=== PATIENT | male | born 1980 | race Caucasian/White ===

== ENCOUNTER 2017-05-15 15:16 | Inpatient (IN) | payer BC, OTHER ==
[~2017-05-15] VITALS: Ht 175.3 cm; Wt 64.9 kg
[2017-05-16 01:45] VITALS: BP 123/76
--- NOTE | 2017-05-16 01:45 | NUR ---
Pre-Assessment Note: Pt seen at [facility] intake office. Pt is 36 year old male, AOx4 without s/s of acute distress noted. BP: 123/76, HR: 88, T: 96.8. RR: 18, SpO2 96%, Pain 0/10. Pt stated he came from [place], [place]. Pt reported that he presented to [facility] to detox from alcohol dependence. Explained rules and regulations of the unit. Full assessment to be done when pt arrives upstairs.
--- NOTE | 2017-05-16 01:55 | NUR ---
Admission Note: Pt is a 36 year old male admitted under the care of Dr. Moncada. Pt is AOx4 without s/s of acute distress. Pt denies any pain/discomfort at this time. Respirations even and unlabored. Bowel sounds active x4 quadrants. Pt reported NKDA and NKFA. Pt following regular diet at home. Pt has a PCP, Dr. Dale from [facility]. Pt reported current ETOH use and dependence: Pt drinks wine but also drinks any ETOH available. Pt drinks 15-20 glasses of box wine daily for the past 2 months. Pt reports having been drinking since he was 18 years old. Pt last drank 2 whiskey [place] before admission 4 hours ago. Initial [facility] assessment is 16 and has moderate symptoms of ETOH withdrawals. Pt verbalized that he is in treatment because his drinking had been "out of control". Pt stated that his children are his motivation to be in treatment. 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 Pt smokes cigarettes daily and refused smoking cessation. Pt reported hx of anxiety, depression, seizures (2 years ago), and broken nose, hand fx (unable to remember when). Pt stated that he had been to multiple treatment facilities: [facility] (2016) [facility] (2001) Pt did not bring any home medications. Family hx of ETOH abuse on grandparents, brother, and mother. Pt refused PNA vaccine and refused IV testing. Educated pt about current plan of care and verbalized support for pt. Encouraged pt to verbalize feelings. Bed in lowest position. Side rails up x2. Bed padded for safety. Pt denies any suicidal ideation at this time. All needs attended and met. Call light functioning and within reach. Will continue to monitor.
[2017-05-16] MEDS ORDERED: MAGNESIUM HYDROXIDE 30 ML LIQUID UDC PO PRN (02:00)
[2017-05-16] MEDS ORDERED: ACETAMINOPHEN 325 MG TABLET PO PRN (02:00)
[2017-05-16] MEDS ORDERED: DICYCLOMINE HCL 20 MG TABLET PO PRN (02:00)
[2017-05-16] MEDS ORDERED: LOPERAMIDE HCL 2 MG CAPSULE PO PRN ×2 (02:00)
[2017-05-16] MEDS ORDERED: IBUPROFEN 400 MG TABLET PO PRN (02:00)
[2017-05-16] MEDS ORDERED: CLONIDINE HCL 0.1 MG TABLET PO PRN (02:00)
[2017-05-16] MEDS ORDERED: MIRALAX 17 GM POWD.PACK PO PRN (02:00)
[2017-05-16] MEDS ORDERED: MAG HYDROX/AL HYDROX/SIMETH 30 ML LIQUID UDC PO PRN (02:00)
[2017-05-16] MEDS ORDERED: THIAMINE HCL 200 MG/2 ML VIAL IM ONE (02:00)
[2017-05-16] MEDS ORDERED: ONDANSETRON ODT 4 MG TAB.RAPDIS SL PRN (02:00)
[2017-05-16] MEDS ORDERED: diphenhydrAMINE 50 MG CAPSULE PO PRN (02:00)
[2017-05-16] MEDS ORDERED: LORAZEPAM 2 MG/1 ML VIAL IM PRN (02:00)
[2017-05-16] MEDS ORDERED: HYDROXYZINE PAMOATE 25 MG CAPSULE PO PRN (02:00)
[2017-05-16] MEDS ORDERED: LORAZEPAM 1 MG TABLET PO PRN ×2 (02:00)
[2017-05-16] MEDS ORDERED: ONDANSETRON 4 MG/2 ML VIAL IM PRN (02:00)
--- NOTE | 2017-05-16 02:35 | NUR ---
PRN Ativan and PRN Benadryl: CIWA noted at 16. Pt noted with increased agitation/anxiety and tremors. PRN Ativan given as ordered. Pt requested to take Benadryl for sleep after coming back from smoking patio. Benadryl given as ordered.
[2017-05-16] MEDS ORDERED: LORAZEPAM 1 MG TABLET ONE (02:44)
[2017-05-16 02:51] LABS: *AMPHETAMINE, URINE NEGATIVE (NEGATIVE); *BARBITURATE, URINE NEGATIVE (NEGATIVE); *CANNABINOID, URINE NEGATIVE (NEGATIVE); *COCCAINE, URINE NEGATIVE (NEGATIVE); *OPIATE, URINE NEGATIVE (NEGATIVE); *PHENCYCLIDINE SCREEN,URINE NEGATIVE (NEGATIVE)
[2017-05-16] MEDS ORDERED: diphenhydrAMINE 25 MG CAP PO ONE (03:15)
--- NOTE | 2017-05-16 03:30 | NUR ---
Ativan Reassessment: Pt stated that he feels less anxious. Slight tremors noted. Ativan PRN effective. CIWA noted at 8. Will continue to monitor.
[2017-05-16 04:30] VITALS: BP 120/70
--- NOTE | 2017-05-16 07:14 | NUR ---
End of Shift Note: Pt is 36M, admitted for ETOH Dependence on 05/16/17. Pt is AOx4 without s/s of acute distress. Pt is full code, on regular diet. Pt noted with NKA. Pt reports hx of Anxiety, Depression, hx of sz, nose/hand fx, Alcoholic Hepatitis. Pt is currently on Ativan PRN to manage withdrawal symptoms. Pt is compliant with plan of care. Pt slept for 4 hours. Last CIWA was 8. Fall precautions observed. Bed in lowest position. Side rails up x2. Call light functioning and within reach. All needs attended and met. Will endorse to day shift nurse.
--- NOTE | 2017-05-16 07:30 | NUR ---
START OF SHIFT Rcvd endorsement from ongoing nurse, client is in room, he sound asleep, easy to arouse, RR 16, even, non-labored. Client is 36 y/o male, admitted for ETOH withdrawal on 05/16/17. Client is full code, regular diet, NKA. Client reports hx of Anxiety, Depression, hx of induced seizure withdrawal (2014), nose/hand fx, Alcoholic Hepatitis. Client is currently on Ativan PRN to manage withdrawal symptoms. PRN Ativan 2mg for CIWA 16, effective last CIWA 8, Benadryl for inability to sleep, he slept for 4 hours. Client is on seizure precautions. Bed in lowest position. Side rails up x2/padded. Call light functioning and within reach. Will continue to monitor.
[2017-05-16 08:00] VITALS: BP 117/63
[2017-05-16] MEDS: FOLIC ACID 1 MG TABLET PO SCH (09:00)
[2017-05-16] MEDS: THIAMINE HCL 100 MG TABLET PO SCH (09:00)
[2017-05-16] MEDS: MULTIVITAMINS,THERAPEUTIC TABLET PO SCH (09:00)
--- NOTE | 2017-05-16 09:50 | NUR ---
Unable to assess CIWA score, client refused to answer stating "later, we do it later, I need to sleep." Client is easy to arouse, RR 18 even, non-labored.
[2017-05-16] MEDS: LORAZEPAM 1 MG TABLET PO SCH ×3 (12:37→20:10)
[2017-05-16] MEDS ORDERED: TRAZ-144 PO (12:43)
--- NOTE | 2017-05-16 12:45 | NUR ---
client reports taking Trazodone every night, he can not remember dose. Dr. Meier notified and ordered Trazodone 50mg HS.
[2017-05-16 12:47] VITALS: BP 116/72
[2017-05-16 13:20] LABS: BASOPHILS # (AUTO) 0.1 K/uL (0.0-8.0); BASOPHILS % (AUTO) 1.1 % (0.0-2.0); EOSINOPHILS # (AUTO) 0.3 K/uL (0.0-0.7); EOSINOPHILS % (AUTO) 4.2 % (0.0-7.0); HEMATOCRIT 48.3 % (40-50); HEMOGLOBIN 16.4 G/DL (14.0-18.0); LYMPHOCYTES # (AUTO) 2.8 K/UL (0.8-4.8); LYMPHOCYTES % (AUTO) 41.6 % (20.5-51.5); MEAN CORPUSCULAR HEMOGLOBIN 31.7 UUG (27.0-31.0); MEAN CORPUSCULAR HGB CONC 34 g/dL (32.0-37.0); MEAN CORPUSCULAR VOLUME 93.1 FL (82.0-92.0); MONOCYTES # (AUTO) 0.4 K/UL (0.1-1.30); MONOCYTES % (AUTO) 6.2 % (0.0-11.0); NEUTROPHILS # (AUTO) 3.1 K/UL (1.8-8.9); NEUTROPHILS % (AUTO) 46.9 % (38.5-71.5); PLATELET COUNT (AUTO) 418 K/UL (150-450); RED BLOOD CELL COUNT(AUTO) 5.18 MIL/UL (4.7-6.1); WHITE BLOOD COUNT (AUTO) 6.7 K/UL (4.0-11.2)
[2017-05-16 13:31] LABS: CREATININE 0.8 mg/dL (0.6-1.3); MAGNESIUM 1.6 mg/dL (1.8-2.4); POTASSIUM 4.3 mmol/L (3.5-5.1); TOTAL PROTEIN, SERUM 7.7 g/dL (6.4-8.2)
[2017-05-16 13:42] LABS: THYROID STIMULATING HORMONE 0.797 mIU/mL (0.358-3.740)
[2017-05-16 16:28] VITALS: BP 132/79
[2017-05-16] MEDS ORDERED: MAGNESIUM OXIDE 400 MG TABLET PO ONE (18:30)
--- NOTE | 2017-05-16 19:27 | NUR ---
END OF SHIFT Client is a 36 year old male admitted for alcohol withdrawal. Client continue to present with depressed mood, flat affect, last CIWA 9. He had an uneventful day, he was cot compliant with group therapy. Safety measures in place, call light within reach, side rails up x2, bed locked and in low position. Endorsed to day shift nurse.
--- NOTE | 2017-05-16 19:30 | NUR ---
Start of shift: Received patient alert and oriented x4.Speech is clear, normal tone and able to make his needs known. Patient is ambulatory with steady gait. Patient on 5 day Ativan taper. Behavior; calm and cooperative with care. CIWA assessed and charted accordingly. Patient is compliant with unit rules. Denies SI/HI/AVH. Remained on seizure precaution. Side rails up x2 and padded. Call light within reach. Will continue to monitor behavior and medication effectiveness while MD titrate medication.
[2017-05-16] MEDS: TRAZODONE 50 MG TABLET PO SCH (20:10)
[2017-05-16 21:19] VITALS: BP 120/79
--- NOTE | 2017-05-17 00:08 | NUR ---
Patient asleep.Easily aroused but refused CIWA assessment at this time. Will continue to monitor behavior. Respiration even and unlabored. No sign of distress.
[2017-05-17 00:32] VITALS: BP 118/73
--- NOTE | 2017-05-17 04:22 | NUR ---
Patient asleep. Unable to assess CIWA. Respiration even and unlabored. No signs of distress.
[2017-05-17 05:18] VITALS: BP 113/76
--- NOTE | 2017-05-17 06:43 | NUR ---
Patient slept 7 hours. No signs of distress. Respiration even and unlabored. Alert and oriented x4 Compliant with medication. no behavior issues. Remained on seizure precaution with side rails padded.
--- NOTE | 2017-05-17 07:37 | NUR ---
START OF SHIFT & PRN Ibuprofen, Bentyl Rcvd endorsement from ongoing nurse, client is in the hallway, he requests to go to the patio to smoke a cigarette, he appears with flushed face, fine tremors, depressed mood and flat affect, he reports low back pain and abdominal spasms, PRN Ibuprofen 400mg and Bentyl 20mg PO administered respectively, will continue to monitor. Encourage client to increase fluid as tolerated to facilitate detox. Encourage client to attend group therapy for skills to maintain sobriety. He continue on Ativan taper (day 2) for ETOH withdrawal, tolerating well. Last CIWA 5 @ 1999. Client had an uneventful night, he slept 7 hrs. He has Trazodone 50mg HS. Client is full code, regular diet, NKA. Client reports hx of induced seizure withdrawal (2014). Client is on seizure precautions. Bed in lowest position. Side rails up x2/padded. Call light functioning and within reach.
[2017-05-17 08:06] VITALS: BP 132/87
[2017-05-17] MEDS: MULTIVITAMINS,THERAPEUTIC TABLET PO SCH (08:27)
[2017-05-17] MEDS: FOLIC ACID 1 MG TABLET PO SCH (08:27)
[2017-05-17] MEDS: THIAMINE HCL 100 MG TABLET PO SCH (08:27)
--- NOTE | 2017-05-17 08:28 | NUR ---
Administered TB test to L F/A, client tolerated well.
--- NOTE | 2017-05-17 08:37 | NUR ---
Reassessment PRN Ibuprofen, Mattyl Client reports relief from lower back pain from 3/10 to now 0/10 and no more abdominal spasm. above medications effective.
[2017-05-17] MEDS ORDERED: TUBERCULIN,PURIF.PROT.DERIV. 5 TU/0.1 ML TEST ID ONE (09:00)
[2017-05-17] MEDS ORDERED: LORAZEPAM 1 MG TABLET PO SCH (09:00)
[2017-05-17 12:09] LABS: HEPATITIS B SURFACE AG Negative (Negative)
[2017-05-17 12:55] VITALS: BP 121/75
[2017-05-17] MEDS: LORAZEPAM 1 MG TABLET PO SCH ×2 (14:25→20:30)
[2017-05-17 16:55] VITALS: BP 107/70
--- NOTE | 2017-05-17 19:18 | NUR ---
END OF SHIFT Client is a 36 year old male admitted for alcohol withdrawal. Client continue to present with depressed mood, flat affect, last CIWA 7.PRN Motrin for lower lack pain and Bentyl for abdominal spasms, noted effective. Client was compliant with 2/3 of group therapy. Safety measures in place, call light within reach, side rails up x2, bed locked and in low position. Endorsed to incoming nurse.
[2017-05-17 20:00] VITALS: BP 116/80
--- NOTE | 2017-05-17 20:00 | NUR ---
Start of Shift Pt is a 36 year old male admitted for ETOH dependence, placed on 5 day Ativan taper. Pt reported consuming Vodka, Wine 15-20 boxes of wine or whichever ETOH is available/daily. PMH: Anxiety, depression, seizure (2 years ago) and broken nose, hand fx (unable to remember when). NKA, regular diet, seizure precautions and full code. Upon assessment, pt is in room, isolative, reports anxiety, fatigue, tremors felt upon touch, skin flushed/clammy, respirations even/unlabored, denies SOB/chest pain, denies n/v/d, bowel sounds active x4, abdomen soft.. Safety measures in place, call light within reach, side rails up x2, bed locked and in low position. Will continue to monitor.
[2017-05-17] MEDS: TRAZODONE 50 MG TABLET PO SCH (20:30)
[2017-05-18] VITALS: BP 108/64
--- NOTE | 2017-05-18 | NUR ---
Vital Signs BP 108/64, pulse 82, resp 12, Spo2 98% room air, temp 98.6, no reports of pain 0/10 CIWA deferred d/t pt sleeping - to assess while pt is awake as ordered. Safety measures in place. Will continue to monitor.
--- NOTE | 2017-05-18 04:00 | NUR ---
Pt refused to be woken up for 0400 VS CIWA deferred d/t pt sleeping to assess while pt is awake as ordered. Safety measures in place. Will continue to monitor.
--- NOTE | 2017-05-18 07:00 | NUR ---
End of Shift Pt is a 36 year old male admitted for ETOH dependence, placed on 5 day Ativan taper. Pt reported consuming Vodka, Wine 15-20 boxes of wine or whichever ETOH is available/daily. PMH: Anxiety, depression, seizure (2 years ago) and broken nose, hand fx (unable to remember when). NKA, regular diet, seizure precautions and full code. During shift, pt remained isolative to room, reported feeling anxiety, fatigue, tremors felt upon touch, skin flushed/clammy scheduled taper medications administered, effective in management of s/s of withdrawal, CIWA 6. No PRN medications administered during shift. Pt slept for 6 hours, intake of 1855 ml PO, voids x3 and stool x0. Safety measures in place, call light within reach, side rails up x2, bed locked and in low position. Endorsed to day shift nurse.
--- NOTE | 2017-05-18 07:30 | NUR ---
START OF SHIFT Rcvd endorsement from ongoing nurse, client is in room, a/o x4, he presents with depressed mood, flat affect, flushed face, tremors felt, not observed, clammy skin. He stated "I want to leave today, I am ready to continue with my treatment." Marketing Developer educate client that the Ativan taper medication contribute to him feeling better, risk/benefits discuss about taper medications, he stated . "I understand, but I do not want to take Ativan until I talk to the doctor, I want to leave today, but I do not want to go against doctor's order." He denies any SI/HI. Encourage client to increase fluid as tolerated to facilitate detox. Encourage client to attend group therapy for skills to maintain sobriety. He continue on Ativan taper (day 3) for ETOH withdrawal, tolerating well. Last CIWA 6 @ 1999. He has Trazodone 50mg HS, he slept 6 hrs.. Client is full code, regular diet, NKA. Client reports hx of induced seizure withdrawal (2014). Client is on seizure precautions. Bed in lowest position. Side rails up x2/padded. Call light functioning and within reach.
[2017-05-18 08:25] VITALS: BP 120/78
[2017-05-18] MEDS ORDERED: LORAZEPAM 1 MG TABLET PO SCH ×2 (09:00)
[2017-05-18] MEDS: FOLIC ACID 1 MG TABLET PO SCH (09:18)
[2017-05-18] MEDS: THIAMINE HCL 100 MG TABLET PO SCH (09:18)
[2017-05-18] MEDS: MULTIVITAMINS,THERAPEUTIC TABLET PO SCH (09:18)
--- NOTE | 2017-05-18 09:38 | NUR ---
Client refused Ativan taper, notified. NNO at this time.
[2017-05-18 12:25] VITALS: BP 142/87
--- NOTE | 2017-05-18 12:32 | NUR ---
PRN Clonidine 0.1mg, Vistaril 50mg Client presents with anxious mood, he is pacing his room, increased BP 142/87 P 90, above medications given. Client request to leave A, Dr. Moncada made aware, capacity planner, CN and technical writer discuss risk/benefits for non-adherence to taper medications, client will think about it.
[2017-05-18 13:30] LABS: *AMPHETAMINE, URINE NEGATIVE (NEGATIVE); *BARBITURATE, URINE NEGATIVE (NEGATIVE); *CANNABINOID, URINE NEGATIVE (NEGATIVE); *COCCAINE, URINE NEGATIVE (NEGATIVE); *OPIATE, URINE NEGATIVE (NEGATIVE); *PHENCYCLIDINE SCREEN,URINE NEGATIVE (NEGATIVE)
--- NOTE | 2017-05-18 13:32 | NUR ---
Reassessment PRN Clonidine 0.1mg, Vistaril 50mg Client is in bed, he appears less anxious, he agreed to continue 72h observation and leave tomorrow. BP 128/74, P 88 above medications effective, will continue to monitor.
[2017-05-18] MEDS ORDERED: TRAZ-144 PO (16:35)
[2017-05-18] MEDS ORDERED: IBUP-1953 PO (16:35)
[2017-05-18] MEDS ORDERED: HYDR-3895 PO (16:35)
[2017-05-18 16:55] VITALS: BP 111/79
--- NOTE | 2017-05-18 18:33 | NUR ---
END OF SHIFT Client is a 36 year old male admitted for alcohol withdrawal. Client is schedule for discharge tomorrow, urine drug screen collected. Client continues to present with depressed mood, flat affect, last CIWA 6. PRN Clonidine0.1mg and Vistaril 50mg for anxiety, noted effective. Client was compliant with 2/3 of group therapy. Seizure precautions. Adequate intake and output. Safety measures in place, call light within reach, side rails up x2, bed locked and in low position. Endorsed to incoming nurse.
[2017-05-18 20:00] VITALS: BP 124/78
--- NOTE | 2017-05-18 20:00 | NUR ---
Start of Shift Pt is a 36 year old male admitted for ETOH dependence, placed on 5 day Ativan taper. Pt reported consuming Vodka, Wine 15-20 boxes of wine or whichever ETOH is available/daily. PMH: Anxiety, depression, seizure (2 years ago) and broken nose, hand fx (unable to remember when). NKA, regular diet, seizure precautions and full code. Upon assessment, pt presents with mild anxiety, skin is flushed/clammy, respirations even/unlabored, denies SOB/chest pain, denies n/v/d, bowel sounds active x4, abdomen soft. Pt is scheduled for discharge tomorrow. Safety measures in place, call light within reach, side rails up x2, bed locked and in low position. Will continue to monitor.
[2017-05-18] MEDS: TRAZODONE 50 MG TABLET PO SCH (20:59)
--- NOTE | 2017-05-19 | NUR ---
Pt refused to be woken up for 0000 VS CIWA deferred d/t pt sleeping to assess while pt is awake as ordered. Safety measures in place. Will continue to monitor.
--- NOTE | 2017-05-19 07:00 | NUR ---
End of Shift Pt is a 36 year old male admitted for ETOH dependence, placed on 5 day Ativan taper. Pt reported consuming Vodka, Wine 15-20 boxes of wine or whichever ETOH is available/daily. PMH: Anxiety, depression, seizure (2 years ago) and broken nose, hand fx (unable to remember when). NKA, regular diet, seizure precautions and full code. During shift, pt presented with mild anxiety, skin flushed/clammy - due medications administered. No PRN medications administered during shift. Pt is scheduled for discharge tomorrow. CIWA 4, Pt slept for 8 hours, intake of 1000 ml PO, voids x1 and stool x0. Safety measures in place, call light within reach, side rails up x2, bed locked and in low position. Endorsed to day shift nurse.
--- NOTE | 2017-05-19 07:30 | NUR ---
START OF SHIFT Received report from restaurant shift supervisor nurse. Pt is a 36 year old male admitted to [facility] on 05/16/16 for ETOH. Pt is A/O x4, primary medical history of depression, and anxiety. Pt s/s of withdrawal were managed with ordered medications. Pt has completed modified Ativan taper. Pt is medically cleared for d/c, pt is aware and states he is ready. Pt has NKA, Full code, and regular diet. Pt remains safe throughout hospitalization. Pt ambulates with steady gait at this time. No PRN medications needed or administered at night. Pt remains calm, compliant and cooperative with care at this time. Most recent CIWA is 1. V/S remain WNL. Pt slept for 8 hours. Breathing even and unlabored, pt safe with bed locked in lowest position, side rails up x2 and call light within reach. Will continue to monitor.
--- NOTE | 2017-05-19 08:40 | NUR ---
D/C NOTE Pt is A/O x4. V/S remain WNL. Pt denies SI/HI or hallucinations. Pt shows no s/s of acute withdrawal at this time, and is stable. has medically cleared pt for d/c. Education on Hepatitis C, smoking cessation and medication side effects provided. Pt verbalizes understanding. All pt belongings are in belonging bag, including prescriptions, pt did not have any home medications. Refuses PNU vaccination. Pt is being accompanied by TRANSPLANT IMMUNOLOGIST at this time to be transported to rehab. All needs met.
[2017-05-19 08:46] VITALS: BP 125/79
[2017-05-19] MEDS: MULTIVITAMINS,THERAPEUTIC TABLET PO SCH (08:47)
[2017-05-19] MEDS: THIAMINE HCL 100 MG TABLET PO SCH (08:47)
[2017-05-19] MEDS: FOLIC ACID 1 MG TABLET PO SCH (08:47)
[2017-05-19] MEDS ORDERED: LORAZEPAM 1 MG TABLET PO SCH ×2 (09:00)
[2017-05-20] MEDS ORDERED: LORAZEPAM 1 MG TABLET PO SCH (09:00)
== END 2017-05-19 08:40 | disposition home or self-care (01) | DRG 895 ==
LOC: SRC 05-16 01:21
PROVIDERS: ADMIT Internal Medicine; ATTEND Internal Medicine
PROC: HZ2ZZZZ Detoxification Services for Substance Abuse Treatment (ICD-10-PCS; principal; 2017-05-16)
PROC: HZ41ZZZ Group Counseling for Substance Abuse Treatment, Behavioral (ICD-10-PCS; 2017-05-17)
DX: F10.230 Alcohol dependence with withdrawal, uncomplicated (principal); K70.9 Alcoholic liver disease, unspecified; Y90.9 Presence of alcohol in blood, level not specified; F41.9 Anxiety disorder, unspecified; Z83.3 Family history of diabetes mellitus; G47.00 Insomnia, unspecified; F17.210 Nicotine dependence, cigarettes, uncomplicated; Z91.14 Patient's other noncompliance with medication regimen; F32.9 Major depressive disorder, single episode, unspecified; E83.42 Hypomagnesemia
CPT/HCPCS: 36415; 70030-TC; 80307; 83690; 83735; 84443; 85025; 86580; 86592; 86705; 86803; 87340; A4663; G0480; Q0163